=== PATIENT | female | born 2000 | race Caucasian/White ===

== ENCOUNTER → 2022-05-28 08:04 | Outpatient (CLI) | payer OTHER, SELFPAY ==
--- NOTE | 2022-05-28 | DI.MRI.S_ITS ---
PROCEDURE: MR KNEE RT W CON INDICATIONS: ACUTE PAIN OF RIGHT KNEE TECHNIQUE: After the administration of 50 mL of dilute intra-articular Gadolinium contrast, sagittal T1 spin echo with fat saturation and PD fast spin echo with fat saturation, coronal T1 spin echo with and without fat saturation, coronal T2 fast spin echo with fat saturation, axial PD fast spin echo with fat saturation through the knee. COMPARISON: [facility], MR, MR KNEE RIGHT WITHOUT CONTRAST, 06/30/2018, 7:59. FINDINGS: Image quality: Excellent. Menisci: The medial and lateral menisci demonstrate normal morphology and internal signal. The meniscal root ligaments appear intact. Cruciate ligaments: The anterior and posterior cruciate ligaments appear intact. Medial structures: The medial collateral ligament appears intact. The posterior oblique ligament, semimembranosus tendon insertions, oblique popliteal ligament, and meniscocapsular junction appear intact. Visualized portions of the pes anserinus tendons appear normal. No abnormal bursal fluid. Lateral structures: The lateral collateral ligament, long and short heads of the biceps femoris tendon appear intact. The popliteus tendon appears normal; the popliteofibular ligament appears intact. Iliotibial band appears normal. Anterior structures: The quadriceps and patellar tendons appear intact. Patellar alignment is normal. No femoral trochlear dysplasia or ventral trochlear prominence. No edema in the infrapatellar fat pad. Bone and cartilage: No bone marrow contusions or fractures. The cartilage of the medial and lateral femorotibial compartments, as well as the patellofemoral compartment, appears normal in thickness. Joint space: No Lilly's cyst. Normal appearing synovial plicae are incidentally noted. No intra-articular bodies. IMPRESSION: 1. No evidence of meniscal tear. 2. Cruciate ligaments are intact. Medial and lateral collateral ligaments are intact. 3. No signal abnormality is seen in infrapatellar fat pad on the current study. Distal quadriceps tendon and patellar tendon are grossly intact. 4. No marrow signal abnormality. Articulating cartilages are intact. Dictated by: Matheus Patel M.D. on 05/28/2022 at 11:16 Approved by: Matheus Patel M.D. on 05/28/2022 at 11:23
--- NOTE | 2022-05-28 | DI.RAD.S_ITS ---
PROCEDURE: FL KNEE INJECTION MR/CT RT INDICATIONS: ACUTE PAIN OF RIGHT KNEE COMPARISON: None. TECHNIQUE: The indications, alternatives, benefits, risks, and complications of the procedure were explained to the patient. Written informed consent was obtained and placed in the chart. The knee was examined fluoroscopically, and a site chosen for knee joint injection. The skin was prepped and draped in a sterile fashion, and 1% Lidocaine infiltrated from the skin down to the articular surface. A hypodermic needle was then introduced into the joint and iodinated contrast media was instilled to confirm the intra-articular needle tip placement. This was followed by approximately 50 mL dilute solution of a gadolinium containing MR contrast agent. The needle was removed and a bandage was applied. An Agustin wrap was then applied around the knee joint to keep the contrast from collecting in the suprapatellar recess. The patient experienced no complications throughout the procedure and left the fluoroscopic suite in no apparent distress. FINDINGS: Single fluoroscopic spot image demonstrates intra-articular location to injected iodinated contrast. IMPRESSION: Successful fluoroscopically guided administration of dilute Gadolinium solution into the knee joint for MR arthrogram. Dictated by: Matheus Patel M.D. on 05/28/2022 at 11:02 Approved by: Matheus Patel M.D. on 05/28/2022 at 11:03
== END ==
PROVIDERS: Family Provider Pediatrics; PCP Family Medicine; Referring Provider Orthopaedic Surgery; Visit Provider Orthopaedic Surgery
DX: M25.561 Pain in right knee (principal)
CPT/HCPCS: 27369; 73722; 77002

== ENCOUNTER → 2024-02-23 08:52 | Outpatient (CLI) | payer OTHER, SELFPAY ==
--- NOTE | 2024-02-23 | DI.MRI.S_ITS ---
PROCEDURE: MR KNEE RT WO CON INDICATIONS: SUBLUXATION TECHNIQUE: Noncontrast sagittal PD fast spin echo and T2 fast spin echo with fat saturation, sagittal 3-D FLASH with fat saturation; coronal T1 spin echo and PD fast spin echo with fat saturation, and axial PD fast spin echo with fat saturation through the knee. COMPARISON: [facility], MR, MR KNEE RT W CON, 05/28/2022, 8:51. [facility], MR, MR KNEE LT WO CON, 02/23/2024, 9:27. FINDINGS: Image quality: Excellent. Menisci: In the medial meniscus, there is mild extrusion of the medial meniscus body, without tear. Mild intrasubstance degeneration of the medial meniscus body. The lateral meniscus is unremarkable. Cruciate ligaments: The anterior and posterior cruciate ligaments appear intact. Medial structures: The medial collateral ligament appears intact. The posterior oblique ligament, semimembranosus tendon insertions, oblique popliteal ligament, and meniscocapsular junction appear intact. Visualized portions of the pes anserinus tendons appear normal. No abnormal bursal fluid. Lateral structures: The lateral collateral ligament, long and short heads of the biceps femoris tendon appear intact. The popliteus tendon appears normal; the popliteofibular ligament appears intact. The posterosuperior and anteroinferior popliteomeniscal fascicles appear intact. The arcuate and fabellofibular ligaments appear intact, on either side of the lateral inferior geniculate artery. Iliotibial band appears normal. Anterior structures: The quadriceps and the patellar tendon are intact. Superolateral Hoffa's fat pad edema, suggestive of patellar maltracking. The medial and the lateral patellofemoral ligaments are intact. Mild pre femoral fat pad edema, suggestive of patellar maltracking as well. Bones and cartilage: Mild chondral irregularity of the patella, with minimal subchondral marrow edema. Cartilage of the trochlea is well maintained. In the medial compartment, the cartilage is well maintained. In the lateral compartment, the cartilage is well maintained as well. No acute fracture. Trace knee effusion. Trace popliteal cyst. The popliteal vasculature is unremarkable. IMPRESSION: 1. Mild intrasubstance degeneration of the medial meniscus with mild extrusion of the medial meniscus body. 2. 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 Dictated by: Taylor Wallace M.D. on 02/24/2024 at 20:08 Approved by: Taylor Wallace M.D. on 02/24/2024 at 20:19
--- NOTE | 2024-02-23 | DI.MRI.S_ITS ---
PROCEDURE: MR KNEE LT WO CON INDICATIONS: SUBLUXATION TECHNIQUE: Noncontrast sagittal PD fast spin echo and T2 fast spin echo with fat saturation, sagittal 3-D FLASH with fat saturation; coronal T1 spin echo and PD fast spin echo with fat saturation, and axial PD fast spin echo with fat saturation through the knee. COMPARISON: [facility], CR, XR KNEE ARTHRITIC SERIES BI, 02/14/2024, 16:56. FINDINGS: Image quality: Excellent. Menisci: In the medial meniscus, there is a complex tear at the posterior horn and meniscus body junction, with a horizontal and undersurface component. There is mild extrusion of the medial meniscus body. The lateral meniscus is unremarkable. Cruciate ligaments: The anterior and posterior cruciate ligaments appear intact. Medial structures: The medial collateral ligament appears intact. The posterior oblique ligament, semimembranosus tendon insertions, oblique popliteal ligament, and meniscocapsular junction appear intact. Visualized portions of the pes anserinus tendons appear normal. No abnormal bursal fluid. Lateral structures: The lateral collateral ligament, long and short heads of the biceps femoris tendon appear intact. The popliteus tendon appears normal; the popliteofibular ligament appears intact. The posterosuperior and anteroinferior popliteomeniscal fascicles appear intact. The arcuate and fabellofibular ligaments appear intact, on either side of the lateral inferior geniculate artery. Iliotibial band appears normal. Anterior structures: The quadriceps and the patellar tendon are intact. The medial and lateral patellofemoral ligaments are intact. Bones and cartilage: Mild lateral tilt of the patella. Mild superolateral Hoffa's fat pad edema, raising concern for patellar maltracking. Mild chondral irregularity in the medial patellar facet. Cartilage of the trochlea is well maintained. The cartilage of the medial and the lateral compartment are well maintained. No acute fracture. Joint space: Small knee effusion. No popliteal cyst. No intra-articular body. Popliteal vasculature is unremarkable. IMPRESSION: 1. Complex tear of the medial meniscus body. 2. Findings suggestive of patellar maltracking. Mild chondrosis of the patellofemoral compartment. Dictated by: Taylor Wallace M.D. on 02/24/2024 at 19:58 Approved by: Taylor Wallace M.D. on 02/24/2024 at 20:08
== END ==
PROVIDERS: Family Provider Pediatrics; PCP Family Medicine; Referring Provider Orthopaedic Surgery Foot and Ankle Surgery; Visit Provider Orthopaedic Surgery Foot and Ankle Surgery
DX: S83.001A Unspecified subluxation of right patella, initial encounter (principal); S83.002A Unspecified subluxation of left patella, initial encounter; S83.232A Complex tear of medial meniscus, current injury, left knee, initial encounter; M94.262 Chondromalacia, left knee
CPT/HCPCS: 73721